=== PATIENT | male | born 1970 | race Two or more races ===

== ENCOUNTER 2017-12-01 17:39 | Inpatient (IN) | payer MEDICAID ==
[~2017-12-01] VITALS: Ht 170.2 cm; Wt 78.0 kg
[~2017-12-01 17:39] MED LIST: IBUP-24 PO; LISI-600 PO; LORA0.5T PO; NAPR220T67 PO; ONDA4TAB9 SL; PER10325T PO
[2017-12-01] MEDS ORDERED: normal saline 1000ML IV soln IV ONE (18:00)
[2017-12-01] MEDS ORDERED: ondansetron/PF 4mg/2ml inj IV ONE ×2 (19:05→23:35)
[2017-12-01] MEDS ORDERED: HYDROmorphone 1 mg/ml syringe IV ONE ×3 (19:05→23:35)
[2017-12-01 19:13] LABS: BASOPHILS % (AUTO) 0 % (0-1); EOSINOPHILS # (AUTO) 0.1 X10'3 (0-0.9); EOSINOPHILS % (AUTO) 0.6 % (0-6); HEMATOCRIT 33.4 % (42.0-52.0); LYMPHOCYTES # (AUTO) 1.6 X10'3 (1.1-4.8); LYMPHOCYTES % (AUTO) 8.5 % (21-51); MEAN CORPUSCULAR VOLUME 81.8 FL (78-98); MEAN PLATELET VOLUME 6.5 FL (7.4-10.4); MONOCYTES # (AUTO) 0.9 X10'3 (0-0.9); MONOCYTES % (AUTO) 4.7 % (2-12); NEUTROPHILS # (AUTO) 16.6 X10'3 (1.8-7.7); NEUTROPHILS % (AUTO) 86.2 % (42-75); PLATELET COUNT 626 X10'3 (140-440); RED BLOOD COUNT 4.09 X10'6 (4.70-6.10); RED CELL DISTRIBUTION WIDTH 16.5 % (11.5-14.5); WHITE BLOOD COUNT 19.3 X10'3 (4.5-11.0)
[2017-12-01 19:24] LABS: INR 1.2 INR; PARTIAL THROMBOPLASTIN TIME 29 SECONDS (22-32)
[2017-12-01 19:38] LABS: ALANINE AMINOTRANSFERASE 21 U/L (12-78); ALBUMIN 2.8 G/DL (3.4-5.0); ALBUMIN/GLOBULIN RATIO 0.5 (1.1-1.5); ALKALINE PHOSPHATASE 143 IU/L (46-116); ANION GAP 12 (8-16); ASPARTATE AMINO TRANSFERASE 23 U/L (10-37); BILIRUBIN,TOTAL 0.5 MG/DL (0.1-1.0); BLOOD UREA NITROGEN 33 MG/DL (7-18); BUN/CREATININE RATIO 24.3 (5.4-32.0); CALCIUM 9.2 MG/DL (8.5-10.1); CHLORIDE 97 MMOL/L (99-107); CREATININE 1.36 MG/DL (0.60-1.10); GLUCOSE 122 MG/DL (70-104); MAGNESIUM 1.8 MG/DL (1.5-2.4); POTASSIUM 3.7 MMOL/L (3.5-5.1); SODIUM 132 MMOL/L (135-145); TOTAL CARBON DIOXIDE 23.3 MMOL/L (24-32); eGFR 56 ML/MIN
[2017-12-01 20:15] LABS: CLARITY,URINE CLEAR (Clear); COLOR,URINE YELLOW (Yellow); GLUCOSE, URINE NEGATIVE (Neg); KETONES,URINE NEGATIVE (Neg); LEUKOCYTE ESTERASE ,URINE NEGATIVE (Neg); NITRITES, URINE NEGATIVE (Neg); OCCULT BLOOD,URINE SMALL (Neg); PH,URINE 5.5 (4.8-8.0); PROTEIN,URINE 30 mg/dl (Neg); UROBILINOGEN,URINE 0.2 E.U/dL (0.2-1.0)
[2017-12-01 20:25] LABS: UA COLLECTION TYPE CLN CATCH MIDSTREAM
[2017-12-01 20:27] LABS: WBC,URINE 0-4 /HPF (0-4)
[2017-12-01 20:28] LABS: BACTERIA,URINE FEW /HPF (Neg); RBC,URINE NONE SEEN /HPF (0-2); SQUAMOUS EPITHELIAL CELL,UR NONE SEEN /LPF (FEW)
[2017-12-01] MEDS ORDERED: normal saline 1000ml 1,000 ML IV ONE (20:35)
[2017-12-01] MEDS ORDERED: iohexol 300mg/ml 100ml inj. ONE (20:40)
[2017-12-01] MEDS ORDERED: metoclopramide 5 mg/ml inj IV ONE (20:50)
[2017-12-01] MEDS ORDERED: vancomycin/NS 1 GM ADD-VANTAGE 250 ML IV ONE (23:35)
[2017-12-01] MEDS ORDERED: piperacillin/tazo 3.375gm/50ml 50 ML IV ONE (23:35)
[2017-12-02] VITALS (18 sets, daily range): BP systolic 117–158; BP diastolic 75–117
[2017-12-02] MEDS ORDERED: PROC-8 PO (00:17)
[2017-12-02] MEDS ORDERED: MORP30TA PO (00:17)
[2017-12-02] MEDS ORDERED: ONDA8TAB12 PO (00:17)
[2017-12-02] MEDS ORDERED: acetaminophen 325mg tablet PO PRN (01:15)
[2017-12-02] MEDS ORDERED: HYDROmorphone 1 mg/ml syringe IV PRN (01:15)
[2017-12-02] MEDS ORDERED: mag hydrox/Alum hydrox/simeth 30ml oral suspension PO PRN (01:15)
[2017-12-02] MEDS ORDERED: magnesium hydroxide 30ml (MOM) UD suspension PO PRN (01:15)
[2017-12-02] MEDS ORDERED: docusate sod 100mg capsule PO PRN (01:15)
[2017-12-02] MEDS: normal saline 1000ml 1,000 ML IV SCH ×3 (02:01→21:12)
[2017-12-02] MEDS: HYDROmorphone 1 mg/ml syringe IV PRN ×5 (02:58→20:15)
[2017-12-02] MEDS: ondansetron/PF 4mg/2ml inj IV PRN (02:58)
[2017-12-02] MEDS ORDERED: lactobacillus rhamnosus 10,000 MMU CELLS/CAPSULE PO SCH (07:30)
[2017-12-02] MEDS ORDERED: LACTOBACILLUS RHAMNOSUS GG 15 billion unit sprinkle caps PO SCH (07:37)
[2017-12-02] MEDS: piperacillin/tazo 3.375gm/50ml 50 ML IV SCH ×3 (07:52→19:46)
[2017-12-02] MEDS: LORazepam 0.5 MG tablet PO SCH ×3 (07:53→19:56)
[2017-12-02] MEDS: LACTOBACILLUS RHAMNOSUS GG 15 billion unit sprinkle caps PO SCH (07:53)
[2017-12-02] MEDS: lisinopril 20mg tablet PO SCH (07:53)
[2017-12-02] MEDS ORDERED: iohexol 300mg/ml 100ml inj. ONE ×2 (10:52→11:44)
[2017-12-02] MEDS ORDERED: fentaNYL/PF 50MCG/1 ML 2ML syringe ONE ×2 (12:00→12:14)
[2017-12-02] MEDS ORDERED: midazolam 2 mg/2 ml injection ONE (12:00)
[2017-12-02] MEDS ORDERED: fentaNYL/PF 50MCG/1 ML 2ML syringe IV PRN (12:05)
[2017-12-02] MEDS ORDERED: midazolam 2 mg/2 ml injection IV PRN (12:05)
[2017-12-02] MEDS ORDERED: LIDOcaine 1%/PF (10mg/ml) 5ml vial SQ ONE (12:05)
[2017-12-02] MEDS ORDERED: diltiazem 5mg/ml 5ml inj. IV ONE (12:50)
[2017-12-02] MEDS: vancomycin/NS 1 GM ADD-VANTAGE 250 ML IV SCH (13:34)
[2017-12-03] MEDS: vancomycin/NS 1 GM ADD-VANTAGE 250 ML IV SCH ×2 (00:07→13:28)
[2017-12-03] MEDS: HYDROmorphone 1 mg/ml syringe IV PRN ×6 (00:27→22:23)
[2017-12-03] MEDS: normal saline 1000ml 1,000 ML IV SCH ×2 (02:13→15:20)
[2017-12-03] MEDS: piperacillin/tazo 3.375gm/50ml 50 ML IV SCH ×4 (02:13→19:52)
[2017-12-03 03:00] VITALS: BP 149/86
[2017-12-03] MEDS: ondansetron/PF 4mg/2ml inj IV PRN (04:56)
[2017-12-03 05:12] LABS: BASOPHILS % (AUTO) 0.1 % (0-1); EOSINOPHILS # (AUTO) 0.2 X10'3 (0-0.9); EOSINOPHILS % (AUTO) 1.4 % (0-6); HEMATOCRIT 29.7 % (42.0-52.0); HEMOGLOBIN 9.8 g/dl (14.0-17.9); LYMPHOCYTES # (AUTO) 1.7 X10'3 (1.1-4.8); LYMPHOCYTES % (AUTO) 9.4 % (21-51); MEAN CORPUSCULAR HEMOGLOBIN 26.8 PG (27.0-31.0); MEAN CORPUSCULAR VOLUME 81.3 FL (78-98); MEAN PLATELET VOLUME 6.3 FL (7.4-10.4); MONOCYTES # (AUTO) 1.1 X10'3 (0-0.9); MONOCYTES % (AUTO) 6.5 % (2-12); NEUTROPHILS # (AUTO) 14.5 X10'3 (1.8-7.7); NEUTROPHILS % (AUTO) 82.6 % (42-75); PLATELET COUNT 513 X10'3 (140-440); RED BLOOD COUNT 3.66 X10'6 (4.70-6.10); RED CELL DISTRIBUTION WIDTH 16.7 % (11.5-14.5); WHITE BLOOD COUNT 17.5 X10'3 (4.5-11.0)
[2017-12-03 05:36] LABS: ANION GAP 10 (8-16); BLOOD UREA NITROGEN 12 MG/DL (7-18); BUN/CREATININE RATIO 12.6 (5.4-32.0); CHLORIDE 104 MMOL/L (99-107); CREATININE 0.95 MG/DL (0.60-1.10); GLUCOSE 99 MG/DL (70-104); POTASSIUM 3.3 MMOL/L (3.5-5.1); SODIUM 135 MMOL/L (135-145); TOTAL CARBON DIOXIDE 20.9 MMOL/L (24-32); eGFR 85 ML/MIN
[2017-12-03 06:00] VITALS: BP 137/85
[2017-12-03] MEDS: lisinopril 20mg tablet PO SCH (08:38)
[2017-12-03] MEDS: LORazepam 0.5 MG tablet PO SCH ×3 (08:39→20:03)
[2017-12-03] MEDS ORDERED: FLU VACC QS2017-18 36MOS UP/PF 60 MCG/0.5 ML SYRINGE IMVAC ONE (10:00)
[2017-12-03] MEDS ORDERED: potassium Cl 20 mEq SR tablet PO PRN ×3 (10:15→18:10)
[2017-12-03] MEDS ORDERED: potassium Cl 40MEQ/NS 500ml 500 ML IV PRN ×4 (10:15→18:10)
[2017-12-03] MEDS ORDERED: magnesium Cl slow-release 64mg tablet PO PRN (10:15)
[2017-12-03] MEDS: potassium Cl 20 mEq SR tablet PO PRN ×3 (10:35→19:52)
[2017-12-03 11:00] VITALS: BP 140/80
[2017-12-03] MEDS ORDERED: VANCOMYCIN LEVEL IV ONE (12:30)
[2017-12-03 15:00] VITALS: BP 123/87
[2017-12-03] MEDS: K and/or MAG REPLACEMENT MC SCH (18:10)
[2017-12-03 19:00] VITALS: BP 151/82
[2017-12-03] MEDS: acetaminophen 325mg tablet PO PRN (19:56)
[2017-12-03 23:00] VITALS: BP 132/87
[2017-12-04] MEDS: HYDROmorphone 1 mg/ml syringe IV PRN ×5 (02:26→13:13)
[2017-12-04 03:00] VITALS: BP 156/85
[2017-12-04] MEDS: piperacillin/tazo 3.375gm/50ml 50 ML IV SCH ×4 (03:03→20:01)
[2017-12-04] MEDS: normal saline 1000ml 1,000 ML IV SCH ×3 (03:12→23:12)
[2017-12-04] MEDS: acetaminophen 325mg tablet PO PRN ×2 (04:52→18:55)
[2017-12-04] MEDS ORDERED: HYDROmorphone inj. 0.5 MG/0.5 ML DISP.SYRIN IV PRN (05:25)
[2017-12-04 05:36] LABS: ALBUMIN 1.9 G/DL (3.4-5.0); ANION GAP 8 (8-16); BASOPHILS # (AUTO) 0.1 X10'3 (0-0.2); BASOPHILS % (AUTO) 0.3 % (0-1); BLOOD UREA NITROGEN 9 MG/DL (7-18); BUN/CREATININE RATIO 10.8 (5.4-32.0); CALCIUM 8.2 MG/DL (8.5-10.1); CHLORIDE 104 MMOL/L (99-107); CREATININE 0.83 MG/DL (0.60-1.10); EOSINOPHILS # (AUTO) 0.3 X10'3 (0-0.9); EOSINOPHILS % (AUTO) 1.7 % (0-6); GLUCOSE 97 MG/DL (70-104); HEMATOCRIT 28.5 % (42.0-52.0); HEMOGLOBIN 9.3 g/dl (14.0-17.9); LYMPHOCYTES # (AUTO) 1.5 X10'3 (1.1-4.8); LYMPHOCYTES % (AUTO) 8.7 % (21-51); MEAN CORPUSCULAR HEMOGLOBIN 26.4 PG (27.0-31.0); MEAN CORPUSCULAR HGB CONC 32.4 % (33.0-36.5); MEAN CORPUSCULAR VOLUME 81.6 FL (78-98); MEAN PLATELET VOLUME 6.5 FL (7.4-10.4); MONOCYTES # (AUTO) 1.1 X10'3 (0-0.9); MONOCYTES % (AUTO) 6.2 % (2-12); NEUTROPHILS # (AUTO) 14.1 X10'3 (1.8-7.7); NEUTROPHILS % (AUTO) 83.1 % (42-75); PLATELET COUNT 466 X10'3 (140-440); POTASSIUM 3.6 MMOL/L (3.5-5.1); RED CELL DISTRIBUTION WIDTH 16.1 % (11.5-14.5); SODIUM 134 MMOL/L (135-145); TOTAL CARBON DIOXIDE 22.3 MMOL/L (24-32); WHITE BLOOD COUNT 16.9 X10'3 (4.5-11.0); eGFR > 90 ML/MIN
[2017-12-04 06:00] VITALS: BP 144/88
[2017-12-04] MEDS: K and/or MAG REPLACEMENT MC SCH (08:00)
[2017-12-04] MEDS: LACTOBACILLUS RHAMNOSUS GG 15 billion unit sprinkle caps PO SCH (08:21)
[2017-12-04] MEDS: LORazepam 0.5 MG tablet PO SCH ×3 (08:22→20:01)
[2017-12-04] MEDS: lisinopril 20mg tablet PO SCH (08:22)
[2017-12-04] MEDS: ondansetron/PF 4mg/2ml inj IV PRN (08:27)
[2017-12-04 11:00] VITALS: BP 130/90
[2017-12-04] MEDS ORDERED: naloxone 0.4 mg/ml inj IV PRN (14:00)
[2017-12-04] MEDS ORDERED: CADD PCA waste documentation MC PRN (14:00)
[2017-12-04 15:00] VITALS: BP 134/88
[2017-12-04] MEDS: HYDROmorphone/NS 1 mg/ml CADD 50 ML IV SCH ×5 (15:04→22:56)
[2017-12-04 19:00] VITALS: BP 155/88
[2017-12-04] MEDS ORDERED: calcium carbonate 500mg chew tablet PO PRN (20:30)
[2017-12-04] MEDS ORDERED: HYDROcodone/acetaminophen 10/325mg tab PO PRN (20:30)
[2017-12-04] MEDS: pantoprazole 40mg Tablet.DR PO SCH (20:45)
[2017-12-04] MEDS: HYDROcodone/acetaminophen 5mg/325mg tablet PO PRN (20:45)
[2017-12-04 23:00] VITALS: BP 123/84
[2017-12-05] MEDS: HYDROmorphone/NS 1 mg/ml CADD 50 ML IV SCH ×4 (01:00→07:00)
[2017-12-05] MEDS: HYDROcodone/acetaminophen 5mg/325mg tablet PO PRN (02:39)
[2017-12-05] MEDS: piperacillin/tazo 3.375gm/50ml 50 ML IV SCH ×4 (02:39→20:18)
[2017-12-05 03:00] VITALS: BP 147/93
[2017-12-05 06:00] VITALS: BP 136/91
[2017-12-05 06:03] LABS: BASOPHILS # (AUTO) 0.1 X10'3 (0-0.2); BASOPHILS % (AUTO) 0.3 % (0-1); EOSINOPHILS # (AUTO) 0.4 X10'3 (0-0.9); EOSINOPHILS % (AUTO) 2.7 % (0-6); HEMATOCRIT 28.1 % (42.0-52.0); HEMOGLOBIN 9.1 g/dl (14.0-17.9); LYMPHOCYTES # (AUTO) 1.8 X10'3 (1.1-4.8); LYMPHOCYTES % (AUTO) 11.2 % (21-51); MEAN CORPUSCULAR HEMOGLOBIN 26.5 PG (27.0-31.0); MEAN CORPUSCULAR HGB CONC 32.4 % (33.0-36.5); MEAN CORPUSCULAR VOLUME 81.6 FL (78-98); MEAN PLATELET VOLUME 6.1 FL (7.4-10.4); MONOCYTES % (AUTO) 6.6 % (2-12); NEUTROPHILS # (AUTO) 12.6 X10'3 (1.8-7.7); NEUTROPHILS % (AUTO) 79.2 % (42-75); PLATELET COUNT 483 X10'3 (140-440); RED BLOOD COUNT 3.44 X10'6 (4.70-6.10); RED CELL DISTRIBUTION WIDTH 16.6 % (11.5-14.5); WHITE BLOOD COUNT 15.9 X10'3 (4.5-11.0)
[2017-12-05 06:26] LABS: ALBUMIN 1.7 G/DL (3.4-5.0); ANION GAP 8 (8-16); BLOOD UREA NITROGEN 7 MG/DL (7-18); CALCIUM 8.1 MG/DL (8.5-10.1); CHLORIDE 103 MMOL/L (99-107); CREATININE 0.88 MG/DL (0.60-1.10); GLUCOSE 95 MG/DL (70-104); POTASSIUM 3.2 MMOL/L (3.5-5.1); SODIUM 134 MMOL/L (135-145); TOTAL CARBON DIOXIDE 23.4 MMOL/L (24-32); eGFR > 90 ML/MIN
[2017-12-05] MEDS: pantoprazole 40mg Tablet.DR PO SCH (08:21)
[2017-12-05] MEDS: LACTOBACILLUS RHAMNOSUS GG 15 billion unit sprinkle caps PO SCH (08:21)
[2017-12-05] MEDS: LORazepam 0.5 MG tablet PO SCH ×3 (08:22→20:18)
[2017-12-05] MEDS: lisinopril 20mg tablet PO SCH (08:22)
[2017-12-05] MEDS: potassium Cl 20 mEq SR tablet PO PRN ×3 (08:26→18:57)
[2017-12-05] MEDS: K and/or MAG REPLACEMENT MC SCH (08:28)
[2017-12-05] MEDS: normal saline 1000ml 1,000 ML IV SCH ×2 (09:12→22:15)
[2017-12-05] MEDS: HYDROmorphone 1 mg/ml syringe IV PRN ×6 (10:24→22:15)
[2017-12-05] MEDS ORDERED: oxyCODONE/APAP 5-325mg tablet PO PRN (10:50)
[2017-12-05] MEDS ORDERED: HYDROmorphone inj. 0.5 MG/0.5 ML DISP.SYRIN IV PRN (10:50)
[2017-12-05 11:00] VITALS: BP 123/84
[2017-12-05] MEDS ORDERED: VANCOMYCIN LEVEL IV ONE (12:30)
[2017-12-05] MEDS: oxyCODONE/APAP 10/325mg tablet PO PRN ×2 (13:40→18:57)
[2017-12-05 15:00] VITALS: BP 135/97
[2017-12-05 18:00] VITALS: BP 119/85
[2017-12-05 23:00] VITALS: BP 132/94
[2017-12-06] MEDS: oxyCODONE/APAP 10/325mg tablet PO PRN ×6 (00:43→22:13)
[2017-12-06] MEDS: piperacillin/tazo 3.375gm/50ml 50 ML IV SCH ×4 (03:02→19:05)
[2017-12-06] MEDS: HYDROmorphone 1 mg/ml syringe IV PRN ×6 (03:03→21:19)
[2017-12-06 03:41] VITALS: BP 121/89
[2017-12-06] MEDS: normal saline 1000ml 1,000 ML IV SCH ×2 (05:12→15:12)
[2017-12-06 05:35] LABS: BASOPHILS # (AUTO) 0.1 X10'3 (0-0.2); BASOPHILS % (AUTO) 0.3 % (0-1); EOSINOPHILS # (AUTO) 0.5 X10'3 (0-0.9); EOSINOPHILS % (AUTO) 3.2 % (0-6); HEMATOCRIT 26.8 % (42.0-52.0); HEMOGLOBIN 8.6 g/dl (14.0-17.9); LYMPHOCYTES # (AUTO) 1.5 X10'3 (1.1-4.8); LYMPHOCYTES % (AUTO) 9.3 % (21-51); MEAN CORPUSCULAR HEMOGLOBIN 26.7 PG (27.0-31.0); MEAN CORPUSCULAR HGB CONC 32.3 % (33.0-36.5); MEAN CORPUSCULAR VOLUME 82.6 FL (78-98); MEAN PLATELET VOLUME 6.4 FL (7.4-10.4); MONOCYTES # (AUTO) 1.1 X10'3 (0-0.9); MONOCYTES % (AUTO) 6.4 % (2-12); NEUTROPHILS # (AUTO) 13.4 X10'3 (1.8-7.7); NEUTROPHILS % (AUTO) 80.8 % (42-75); PLATELET COUNT 470 X10'3 (140-440); RED BLOOD COUNT 3.24 X10'6 (4.70-6.10); RED CELL DISTRIBUTION WIDTH 16.4 % (11.5-14.5); WHITE BLOOD COUNT 16.5 X10'3 (4.5-11.0)
[2017-12-06 05:49] LABS: ALBUMIN 1.7 G/DL (3.4-5.0); ANION GAP 9 (8-16); BLOOD UREA NITROGEN 6 MG/DL (7-18); BUN/CREATININE RATIO 6.6 (5.4-32.0); CALCIUM 8.1 MG/DL (8.5-10.1); CHLORIDE 100 MMOL/L (99-107); CREATININE 0.91 MG/DL (0.60-1.10); GLUCOSE 95 MG/DL (70-104); POTASSIUM 3.3 MMOL/L (3.5-5.1); SODIUM 133 MMOL/L (135-145); TOTAL CARBON DIOXIDE 24.1 MMOL/L (24-32); eGFR 89 ML/MIN
[2017-12-06 06:30] VITALS: BP 136/93
[2017-12-06] MEDS: LACTOBACILLUS RHAMNOSUS GG 15 billion unit sprinkle caps PO SCH (07:16)
[2017-12-06] MEDS: LORazepam 0.5 MG tablet PO SCH ×3 (07:17→21:16)
[2017-12-06] MEDS: pantoprazole 40mg Tablet.DR PO SCH (07:17)
[2017-12-06] MEDS: potassium Cl 20 mEq SR tablet PO PRN ×2 (07:17→21:16)
[2017-12-06] MEDS: lisinopril 20mg tablet PO SCH (07:29)
[2017-12-06] MEDS: K and/or MAG REPLACEMENT MC SCH (07:30)
[2017-12-06 11:00] VITALS: BP 152/84
[2017-12-06 15:00] VITALS: BP 144/93
[2017-12-06 19:00] VITALS: BP 130/76
[2017-12-06] MEDS ORDERED: potassium Cl 20 mEq SR tablet PO PRN (19:20)
[2017-12-06 23:00] VITALS: BP 157/96
[2017-12-07] MEDS: HYDROmorphone 1 mg/ml syringe IV PRN ×11 (00:25→23:14)
[2017-12-07] MEDS: normal saline 1000ml 1,000 ML IV SCH ×3 (01:12→21:12)
[2017-12-07] MEDS: potassium Cl 20 mEq SR tablet PO PRN (02:28)
[2017-12-07] MEDS: oxyCODONE/APAP 10/325mg tablet PO PRN ×5 (02:28→20:07)
[2017-12-07] MEDS: piperacillin/tazo 3.375gm/50ml 50 ML IV SCH ×4 (02:29→20:06)
[2017-12-07 03:00] VITALS: BP 130/91
[2017-12-07 05:05] LABS: BASOPHILS # (AUTO) 0.1 X10'3 (0-0.2); BASOPHILS % (AUTO) 0.3 % (0-1); EOSINOPHILS # (AUTO) 0.7 X10'3 (0-0.9); EOSINOPHILS % (AUTO) 3.7 % (0-6); HEMATOCRIT 26.2 % (42.0-52.0); HEMOGLOBIN 8.5 g/dl (14.0-17.9); LYMPHOCYTES % (AUTO) 10.9 % (21-51); MEAN CORPUSCULAR HEMOGLOBIN 26.4 PG (27.0-31.0); MEAN CORPUSCULAR HGB CONC 32.6 % (33.0-36.5); MEAN PLATELET VOLUME 6.3 FL (7.4-10.4); MONOCYTES # (AUTO) 1.3 X10'3 (0-0.9); MONOCYTES % (AUTO) 7.2 % (2-12); NEUTROPHILS # (AUTO) 14.6 X10'3 (1.8-7.7); NEUTROPHILS % (AUTO) 77.9 % (42-75); PLATELET COUNT 487 X10'3 (140-440); RED BLOOD COUNT 3.23 X10'6 (4.70-6.10); RED CELL DISTRIBUTION WIDTH 16.3 % (11.5-14.5); WHITE BLOOD COUNT 18.7 X10'3 (4.5-11.0)
[2017-12-07 05:23] LABS: ALBUMIN 1.7 G/DL (3.4-5.0); ANION GAP 6 (8-16); BLOOD UREA NITROGEN 7 MG/DL (7-18); BUN/CREATININE RATIO 7.7 (5.4-32.0); CALCIUM 8.2 MG/DL (8.5-10.1); CHLORIDE 99 MMOL/L (99-107); CREATININE 0.91 MG/DL (0.60-1.10); GLUCOSE 110 MG/DL (70-104); MAGNESIUM 1.5 MG/DL (1.5-2.4); POTASSIUM 3.8 MMOL/L (3.5-5.1); SODIUM 131 MMOL/L (135-145); TOTAL CARBON DIOXIDE 25.8 MMOL/L (24-32); eGFR 89 ML/MIN
[2017-12-07] MEDS: LORazepam 0.5 MG tablet PO SCH ×3 (07:14→20:06)
[2017-12-07] MEDS: pantoprazole 40mg Tablet.DR PO SCH (07:15)
[2017-12-07] MEDS: LACTOBACILLUS RHAMNOSUS GG 15 billion unit sprinkle caps PO SCH ×2 (07:16→07:30)
[2017-12-07] MEDS: lisinopril 20mg tablet PO SCH (07:16)
[2017-12-07 07:19] VITALS: BP 128/92
[2017-12-07] MEDS: K and/or MAG REPLACEMENT MC SCH (08:00)
[2017-12-07 11:57] VITALS: BP 135/85
[2017-12-07] MEDS ORDERED: normal saline 1000ml 1,000 ML IVB ONE (12:11)
[2017-12-07 16:43] VITALS: BP 127/88
[2017-12-07 19:00] VITALS: BP 138/97
[2017-12-07 23:00] VITALS: BP 126/83
[2017-12-08] VITALS (7 sets, daily range): BP systolic 131–166; BP diastolic 87–110
[2017-12-08] MEDS: oxyCODONE/APAP 10/325mg tablet PO PRN ×5 (00:23→20:30)
[2017-12-08] MEDS: piperacillin/tazo 3.375gm/50ml 50 ML IV SCH ×2 (01:16→08:34)
[2017-12-08] MEDS: HYDROmorphone 1 mg/ml syringe IV PRN ×5 (02:28→21:51)
[2017-12-08 05:35] LABS: BASOPHILS # (AUTO) 0.1 X10'3 (0-0.2); BASOPHILS % (AUTO) 0.3 % (0-1); EOSINOPHILS % (AUTO) 4.6 % (0-6); HEMATOCRIT 30.4 % (42.0-52.0); HEMOGLOBIN 9.9 g/dl (14.0-17.9); LYMPHOCYTES # (AUTO) 3.3 X10'3 (1.1-4.8); LYMPHOCYTES % (AUTO) 16.1 % (21-51); MEAN CORPUSCULAR HEMOGLOBIN 26.6 PG (27.0-31.0); MEAN CORPUSCULAR HGB CONC 32.6 % (33.0-36.5); MEAN CORPUSCULAR VOLUME 81.7 FL (78-98); MEAN PLATELET VOLUME 6.7 FL (7.4-10.4); MONOCYTES # (AUTO) 1.4 X10'3 (0-0.9); MONOCYTES % (AUTO) 6.7 % (2-12); NEUTROPHILS % (AUTO) 72.3 % (42-75); PLATELET COUNT 588 X10'3 (140-440); RED BLOOD COUNT 3.72 X10'6 (4.70-6.10); RED CELL DISTRIBUTION WIDTH 16.1 % (11.5-14.5); WHITE BLOOD COUNT 20.7 X10'3 (4.5-11.0)
[2017-12-08 05:59] LABS: ALBUMIN 2.2 G/DL (3.4-5.0); ANION GAP 8 (8-16); BLOOD UREA NITROGEN 7 MG/DL (7-18); CALCIUM 8.8 MG/DL (8.5-10.1); CHLORIDE 98 MMOL/L (99-107); GLUCOSE 96 MG/DL (70-104); POTASSIUM 3.4 MMOL/L (3.5-5.1); SODIUM 133 MMOL/L (135-145); eGFR 80 ML/MIN
[2017-12-08] MEDS: normal saline 1000ml 1,000 ML IV SCH ×3 (07:18→20:34)
[2017-12-08] MEDS ORDERED: CefTRIAXone 2gm/NS 100ml IVPB 100 ML IV ONE (08:25)
[2017-12-08] MEDS: lisinopril 20mg tablet PO SCH (08:46)
[2017-12-08] MEDS: LACTOBACILLUS RHAMNOSUS GG 15 billion unit sprinkle caps PO SCH (08:46)
[2017-12-08] MEDS: potassium Cl 20 mEq SR tablet PO PRN ×3 (08:47→20:29)
[2017-12-08] MEDS: LORazepam 0.5 MG tablet PO SCH ×3 (08:47→20:29)
[2017-12-08] MEDS: pantoprazole 40mg Tablet.DR PO SCH (08:54)
[2017-12-08] MEDS: K and/or MAG REPLACEMENT MC SCH (09:01)
[2017-12-08] MEDS: oxyCODONE SR 10mg (sust. release) tab PO SCH ×2 (12:19→19:38)
[2017-12-08] MEDS ORDERED: oxyCODONE SR 10mg (sust. release) tab PO SCH (20:00)
[2017-12-08] MEDS ORDERED: oxyCODONE SR 10mg (sust. release) tab PO ONE (23:30)
[2017-12-09] MEDS: oxyCODONE/APAP 10/325mg tablet PO PRN ×3 (00:37→10:03)
[2017-12-09 03:00] VITALS: BP 151/104
[2017-12-09] MEDS: HYDROmorphone 1 mg/ml syringe IV PRN ×6 (03:00→22:49)
[2017-12-09] MEDS: normal saline 1000ml 1,000 ML IV SCH ×2 (05:41→16:10)
[2017-12-09 06:09] LABS: BASOPHILS # (AUTO) 0.1 X10'3 (0-0.2); BASOPHILS % (AUTO) 0.3 % (0-1); EOSINOPHILS # (AUTO) 0.7 X10'3 (0-0.9); EOSINOPHILS % (AUTO) 3.8 % (0-6); HEMOGLOBIN 8.8 g/dl (14.0-17.9); LYMPHOCYTES # (AUTO) 2.6 X10'3 (1.1-4.8); LYMPHOCYTES % (AUTO) 12.9 % (21-51); MEAN CORPUSCULAR HEMOGLOBIN 26.4 PG (27.0-31.0); MEAN CORPUSCULAR HGB CONC 32.4 % (33.0-36.5); MEAN CORPUSCULAR VOLUME 81.5 FL (78-98); MEAN PLATELET VOLUME 6.5 FL (7.4-10.4); MONOCYTES # (AUTO) 1.3 X10'3 (0-0.9); MONOCYTES % (AUTO) 6.7 % (2-12); NEUTROPHILS # (AUTO) 15.1 X10'3 (1.8-7.7); NEUTROPHILS % (AUTO) 76.3 % (42-75); PLATELET COUNT 568 X10'3 (140-440); RED BLOOD COUNT 3.31 X10'6 (4.70-6.10); WHITE BLOOD COUNT 19.8 X10'3 (4.5-11.0)
[2017-12-09 06:30] VITALS: BP 147/100
[2017-12-09 06:36] LABS: ALANINE AMINOTRANSFERASE 18 U/L (12-78); ALBUMIN 1.9 G/DL (3.4-5.0); ALBUMIN/GLOBULIN RATIO 0.3 (1.1-1.5); ALKALINE PHOSPHATASE 229 IU/L (46-116); ANION GAP 5 (8-16); ASPARTATE AMINO TRANSFERASE 39 U/L (10-37); BILIRUBIN,TOTAL 0.5 MG/DL (0.1-1.0); BLOOD UREA NITROGEN 4 MG/DL (7-18); BUN/CREATININE RATIO 4.4 (5.4-32.0); CALCIUM 8.6 MG/DL (8.5-10.1); CHLORIDE 100 MMOL/L (99-107); GLUCOSE 89 MG/DL (70-104); MAGNESIUM 1.7 MG/DL (1.5-2.4); PHOSPHORUS 2.5 MG/DL (2.3-4.5); SODIUM 135 MMOL/L (135-145); TOTAL CARBON DIOXIDE 29.8 MMOL/L (24-32); TOTAL PROTEIN 7.5 G/DL (6.4-8.2); eGFR 90 ML/MIN
[2017-12-09] MEDS: LORazepam 0.5 MG tablet PO SCH ×3 (07:46→20:49)
[2017-12-09] MEDS: pantoprazole 40mg Tablet.DR PO SCH (07:46)
[2017-12-09] MEDS: LACTOBACILLUS RHAMNOSUS GG 15 billion unit sprinkle caps PO SCH (07:47)
[2017-12-09] MEDS: lisinopril 20mg tablet PO SCH (07:47)
[2017-12-09] MEDS: oxyCODONE SR 10mg (sust. release) tab PO SCH ×3 (07:47→20:50)
[2017-12-09] MEDS: K and/or MAG REPLACEMENT MC SCH (07:49)
[2017-12-09] MEDS ORDERED: CefTRIAXone/dextrose 2GM bag 50 ML IV ONE (08:00)
[2017-12-09] MEDS ORDERED: cefazolin/dext.iso 2gm/50ml 50 ML IV ONE (08:00)
[2017-12-09] MEDS ORDERED: CefTRIAXone 2gm/NS 100ml IVPB 100 ML IV SCH (08:00)
[2017-12-09 11:00] VITALS: BP 139/103
[2017-12-09] MEDS ORDERED: HYDROmorphone inj. 0.5 MG/0.5 ML DISP.SYRIN IV PRN (12:05)
[2017-12-09 13:00] VITALS: BP 149/92
[2017-12-09 20:00] VITALS: BP 160/96
[2017-12-09] MEDS: metroNIDAZOLE 500mg tablet PO SCH (20:49)
[2017-12-09] MEDS: ciprofloxacin 250mg tablet PO SCH (22:46)
[2017-12-10] VITALS: BP 149/88
[2017-12-10] MEDS: normal saline 1000ml 1,000 ML IV SCH ×3 (03:30→23:28)
[2017-12-10] MEDS ORDERED: HYDROmorphone inj. 0.5 MG/0.5 ML DISP.SYRIN ONE (05:37)
[2017-12-10 07:00] VITALS: BP 144/90
[2017-12-10] MEDS: LACTOBACILLUS RHAMNOSUS GG 15 billion unit sprinkle caps PO SCH (08:00)
[2017-12-10] MEDS ORDERED: CefTRIAXone 2gm/NS 100ml IVPB 100 ML IV SCH (08:00)
[2017-12-10] MEDS: K and/or MAG REPLACEMENT MC SCH (08:00)
[2017-12-10] MEDS: LORazepam 0.5 MG tablet PO SCH ×3 (08:00→21:32)
[2017-12-10] MEDS: lisinopril 20mg tablet PO SCH (08:01)
[2017-12-10] MEDS: oxyCODONE SR 10mg (sust. release) tab PO SCH ×2 (08:02→13:16)
[2017-12-10] MEDS: metroNIDAZOLE 500mg tablet PO SCH ×2 (08:02→20:21)
[2017-12-10] MEDS: pantoprazole 40mg Tablet.DR PO SCH (08:02)
[2017-12-10 08:23] LABS: BASOPHILS # (AUTO) 0.1 X10'3 (0-0.2); BASOPHILS % (AUTO) 0.4 % (0-1); EOSINOPHILS # (AUTO) 0.4 X10'3 (0-0.9); EOSINOPHILS % (AUTO) 2.6 % (0-6); HEMOGLOBIN 8.8 g/dl (14.0-17.9); LYMPHOCYTES # (AUTO) 1.7 X10'3 (1.1-4.8); LYMPHOCYTES % (AUTO) 10.4 % (21-51); MEAN CORPUSCULAR HEMOGLOBIN 27.6 PG (27.0-31.0); MEAN CORPUSCULAR HGB CONC 35.1 % (33.0-36.5); MEAN CORPUSCULAR VOLUME 78.7 FL (78-98); MEAN PLATELET VOLUME 6.5 FL (7.4-10.4); MONOCYTES # (AUTO) 1.3 X10'3 (0-0.9); MONOCYTES % (AUTO) 7.6 % (2-12); NEUTROPHILS # (AUTO) 13.3 X10'3 (1.8-7.7); PLATELET COUNT 621 X10'3 (140-440); RED BLOOD COUNT 3.18 X10'6 (4.70-6.10); RED CELL DISTRIBUTION WIDTH 15.3 % (11.5-14.5); WHITE BLOOD COUNT 16.8 X10'3 (4.5-11.0)
[2017-12-10 08:37] LABS: ALANINE AMINOTRANSFERASE 18 U/L (12-78); ALBUMIN/GLOBULIN RATIO 0.3 (1.1-1.5); ALKALINE PHOSPHATASE 233 IU/L (46-116); ANION GAP 7 (8-16); ASPARTATE AMINO TRANSFERASE 31 U/L (10-37); BILIRUBIN,TOTAL 0.4 MG/DL (0.1-1.0); BLOOD UREA NITROGEN 5 MG/DL (7-18); CALCIUM 8.6 MG/DL (8.5-10.1); CHLORIDE 100 MMOL/L (99-107); GLUCOSE 98 MG/DL (70-104); SODIUM 137 MMOL/L (135-145); TOTAL PROTEIN 7.9 G/DL (6.4-8.2); eGFR 80 ML/MIN
[2017-12-10] MEDS: ciprofloxacin 250mg tablet PO SCH ×2 (09:40→21:34)
[2017-12-10] MEDS: HYDROmorphone 1 mg/ml syringe IV PRN ×3 (09:41→21:41)
[2017-12-10 11:05] VITALS: BP 150/93
[2017-12-10] MEDS ORDERED: HYDROmorphone 1 mg/ml syringe IV ONE (13:00)
[2017-12-10 18:00] VITALS: BP 139/93
[2017-12-10] MEDS: methadone 10mg tablet PO SCH (20:21)
[2017-12-11] VITALS: BP 162/89
[2017-12-11] MEDS: HYDROmorphone 1 mg/ml syringe IV PRN ×2 (01:46→05:54)
[2017-12-11 05:23] LABS: BASOPHILS % (AUTO) 0.3 % (0-1); EOSINOPHILS # (AUTO) 0.6 X10'3 (0-0.9); EOSINOPHILS % (AUTO) 4.6 % (0-6); HEMATOCRIT 24.6 % (42.0-52.0); LYMPHOCYTES # (AUTO) 1.7 X10'3 (1.1-4.8); LYMPHOCYTES % (AUTO) 12.4 % (21-51); MEAN CORPUSCULAR HEMOGLOBIN 26.3 PG (27.0-31.0); MEAN CORPUSCULAR HGB CONC 32.6 % (33.0-36.5); MEAN CORPUSCULAR VOLUME 80.7 FL (78-98); MEAN PLATELET VOLUME 6.2 FL (7.4-10.4); MONOCYTES % (AUTO) 7.7 % (2-12); NEUTROPHILS # (AUTO) 10.1 X10'3 (1.8-7.7); PLATELET COUNT 599 X10'3 (140-440); RED BLOOD COUNT 3.05 X10'6 (4.70-6.10); RED CELL DISTRIBUTION WIDTH 16.6 % (11.5-14.5); WHITE BLOOD COUNT 13.5 X10'3 (4.5-11.0)
[2017-12-11 06:18] LABS: ALANINE AMINOTRANSFERASE 20 U/L (12-78); ALBUMIN 1.8 G/DL (3.4-5.0); ALBUMIN/GLOBULIN RATIO 0.3 (1.1-1.5); ALKALINE PHOSPHATASE 231 IU/L (46-116); ANION GAP 8 (8-16); ASPARTATE AMINO TRANSFERASE 32 U/L (10-37); BILIRUBIN,TOTAL 0.4 MG/DL (0.1-1.0); BLOOD UREA NITROGEN 7 MG/DL (7-18); BUN/CREATININE RATIO 7.8 (5.4-32.0); CALCIUM 8.5 MG/DL (8.5-10.1); CHLORIDE 100 MMOL/L (99-107); GLUCOSE 93 MG/DL (70-104); POTASSIUM 3.9 MMOL/L (3.5-5.1); SODIUM 136 MMOL/L (135-145); TOTAL CARBON DIOXIDE 27.7 MMOL/L (24-32); TOTAL PROTEIN 7.3 G/DL (6.4-8.2); eGFR 90 ML/MIN
[2017-12-11 07:00] VITALS: BP 151/86
[2017-12-11] MEDS: K and/or MAG REPLACEMENT MC SCH (08:00)
[2017-12-11] MEDS: LORazepam 0.5 MG tablet PO SCH ×3 (08:25→20:32)
[2017-12-11] MEDS: methadone 10mg tablet PO SCH ×2 (08:25→20:31)
[2017-12-11] MEDS: LACTOBACILLUS RHAMNOSUS GG 15 billion unit sprinkle caps PO SCH (08:25)
[2017-12-11] MEDS: metroNIDAZOLE 500mg tablet PO SCH ×2 (08:25→20:31)
[2017-12-11] MEDS: pantoprazole 40mg Tablet.DR PO SCH (08:25)
[2017-12-11] MEDS: lisinopril 20mg tablet PO SCH (08:26)
[2017-12-11] MEDS ORDERED: HYDROmorphone inj. 0.5 MG/0.5 ML DISP.SYRIN ONE ×5 (09:40→22:29)
[2017-12-11] MEDS: normal saline 1000ml 1,000 ML IV SCH (09:43)
[2017-12-11] MEDS: ciprofloxacin 250mg tablet PO SCH ×2 (09:53→22:32)
[2017-12-11] MEDS ORDERED: HYDROmorphone 1 mg/ml syringe IV PRN (10:40)
[2017-12-11 11:00] VITALS: BP 123/85
[2017-12-11] MEDS ORDERED: PANT40TA4 PO (12:02)
[2017-12-11 18:00] VITALS: BP 139/90
[2017-12-12] VITALS: BP 156/94
[2017-12-12] MEDS ORDERED: HYDROmorphone inj. 0.5 MG/0.5 ML DISP.SYRIN ONE ×3 (02:32→16:09)
[2017-12-12] MEDS: normal saline 1000ml 1,000 ML IV SCH ×2 (02:41→13:01)
[2017-12-12 07:00] VITALS: BP 136/84
[2017-12-12] MEDS: pantoprazole 40mg Tablet.DR PO SCH (07:30)
[2017-12-12] MEDS: methadone 10mg tablet PO SCH ×2 (08:00→19:57)
[2017-12-12] MEDS: LORazepam 0.5 MG tablet PO SCH ×3 (08:00→20:15)
[2017-12-12] MEDS: K and/or MAG REPLACEMENT MC SCH (08:00)
[2017-12-12] MEDS: metroNIDAZOLE 500mg tablet PO SCH ×2 (09:19→20:15)
[2017-12-12] MEDS: LACTOBACILLUS RHAMNOSUS GG 15 billion unit sprinkle caps PO SCH (09:19)
[2017-12-12] MEDS: lisinopril 20mg tablet PO SCH (09:20)
[2017-12-12] MEDS: ciprofloxacin 250mg tablet PO SCH ×2 (09:40→21:02)
[2017-12-12 11:50] VITALS: BP 131/89
[2017-12-12] MEDS ORDERED: potassium Cl 20 mEq SR tablet PO STA (12:08)
[2017-12-12] MEDS: Potassium Cl inj 10 MEQ in normal saline 1000ml 1,000 ML IV SCH (17:24)
[2017-12-12 19:30] VITALS: BP 146/92
[2017-12-12] MEDS: diatr meglu/diatrizoate 30ml oral sol.-(3 dose) bottle PO SCH (21:01)
[2017-12-12] MEDS: HYDROmorphone inj. 0.5 MG/0.5 ML DISP.SYRIN IV PRN (21:04)
[2017-12-12 23:00] VITALS: BP 145/96
[2017-12-13] VITALS (9 sets, daily range): BP systolic 99–141; BP diastolic 65–88
[2017-12-13] MEDS: HYDROmorphone inj. 0.5 MG/0.5 ML DISP.SYRIN IV PRN ×6 (01:15→23:14)
[2017-12-13 05:31] LABS: BASOPHILS # (AUTO) 0.1 X10'3 (0-0.2); BASOPHILS % (AUTO) 0.7 % (0-1); EOSINOPHILS # (AUTO) 0.6 X10'3 (0-0.9); EOSINOPHILS % (AUTO) 5.3 % (0-6); HEMOGLOBIN 7.1 g/dl (14.0-17.9); LYMPHOCYTES # (AUTO) 1.8 X10'3 (1.1-4.8); LYMPHOCYTES % (AUTO) 15.2 % (21-51); MEAN CORPUSCULAR HEMOGLOBIN 26.5 PG (27.0-31.0); MEAN CORPUSCULAR VOLUME 80.5 FL (78-98); MEAN PLATELET VOLUME 6.4 FL (7.4-10.4); MONOCYTES # (AUTO) 0.9 X10'3 (0-0.9); MONOCYTES % (AUTO) 8.1 % (2-12); NEUTROPHILS # (AUTO) 8.2 X10'3 (1.8-7.7); NEUTROPHILS % (AUTO) 70.7 % (42-75); PLATELET COUNT 614 X10'3 (140-440); RED BLOOD COUNT 2.68 X10'6 (4.70-6.10); RED CELL DISTRIBUTION WIDTH 16.2 % (11.5-14.5); WHITE BLOOD COUNT 11.6 X10'3 (4.5-11.0)
[2017-12-13 05:38] LABS: HEMATOCRIT 21.6 % (42.0-52.0)
[2017-12-13 05:45] LABS: ALANINE AMINOTRANSFERASE 16 U/L (12-78); ALBUMIN 1.8 G/DL (3.4-5.0); ALBUMIN/GLOBULIN RATIO 0.3 (1.1-1.5); ALKALINE PHOSPHATASE 236 IU/L (46-116); ANION GAP 7 (8-16); ASPARTATE AMINO TRANSFERASE 30 U/L (10-37); BILIRUBIN,TOTAL 0.3 MG/DL (0.1-1.0); BLOOD UREA NITROGEN 7 MG/DL (7-18); CALCIUM 8.3 MG/DL (8.5-10.1); CHLORIDE 100 MMOL/L (99-107); GLUCOSE 85 MG/DL (70-104); POTASSIUM 3.9 MMOL/L (3.5-5.1); SODIUM 134 MMOL/L (135-145); TOTAL CARBON DIOXIDE 27.1 MMOL/L (24-32); TOTAL PROTEIN 7.4 G/DL (6.4-8.2); eGFR 80 ML/MIN
[2017-12-13] MEDS: LACTOBACILLUS RHAMNOSUS GG 15 billion unit sprinkle caps PO SCH (07:41)
[2017-12-13] MEDS: metroNIDAZOLE 500mg tablet PO SCH ×2 (07:41→20:55)
[2017-12-13] MEDS: lisinopril 20mg tablet PO SCH (07:42)
[2017-12-13] MEDS: LORazepam 0.5 MG tablet PO SCH ×3 (07:43→20:56)
[2017-12-13] MEDS: methadone 10mg tablet PO SCH ×2 (07:43→20:56)
[2017-12-13] MEDS: diatr meglu/diatrizoate 30ml oral sol.-(3 dose) bottle PO SCH ×2 (07:51→12:28)
[2017-12-13] MEDS: K and/or MAG REPLACEMENT MC SCH (07:52)
[2017-12-13] MEDS: pantoprazole 40mg Tablet.DR PO SCH (07:58)
[2017-12-13] MEDS: ciprofloxacin 250mg tablet PO SCH ×2 (10:06→23:13)
[2017-12-13] MEDS: Potassium Cl inj 10 MEQ in normal saline 1000ml 1,000 ML IV SCH (11:48)
[2017-12-13] MEDS ORDERED: iohexol 300mg/ml 100ml inj. ONE (12:24)
[2017-12-13] MEDS ORDERED: diphenhydrAMINE 25mg capsule PO ONE (14:10)
[2017-12-13] MEDS ORDERED: acetaminophen 325mg tablet PO ONE (14:10)
[2017-12-13] MEDS ORDERED: furosemide 40mg/4ml inj IV ONE (16:10)
[2017-12-14 00:25] VITALS: BP 125/87
[2017-12-14 00:45] VITALS: BP 150/85
[2017-12-14] MEDS: HYDROmorphone inj. 0.5 MG/0.5 ML DISP.SYRIN IV PRN ×5 (03:20→22:59)
[2017-12-14 05:07] LABS: BASOPHILS # (AUTO) 0.1 X10'3 (0-0.2); BASOPHILS % (AUTO) 0.6 % (0-1); EOSINOPHILS # (AUTO) 0.6 X10'3 (0-0.9); EOSINOPHILS % (AUTO) 4.4 % (0-6); HEMATOCRIT 28.6 % (42.0-52.0); HEMOGLOBIN 9.4 g/dl (14.0-17.9); LYMPHOCYTES % (AUTO) 14.1 % (21-51); MEAN CORPUSCULAR HEMOGLOBIN 26.3 PG (27.0-31.0); MEAN CORPUSCULAR HGB CONC 32.8 % (33.0-36.5); MEAN CORPUSCULAR VOLUME 80.2 FL (78-98); MEAN PLATELET VOLUME 6.3 FL (7.4-10.4); MONOCYTES # (AUTO) 1.2 X10'3 (0-0.9); MONOCYTES % (AUTO) 8.3 % (2-12); NEUTROPHILS # (AUTO) 10.1 X10'3 (1.8-7.7); NEUTROPHILS % (AUTO) 72.6 % (42-75); PLATELET COUNT 651 X10'3 (140-440); RED BLOOD COUNT 3.57 X10'6 (4.70-6.10); RED CELL DISTRIBUTION WIDTH 17.3 % (11.5-14.5); WHITE BLOOD COUNT 13.9 X10'3 (4.5-11.0)
[2017-12-14 05:14] LABS: ALANINE AMINOTRANSFERASE 18 U/L (12-78); ALBUMIN 2.1 G/DL (3.4-5.0); ALBUMIN/GLOBULIN RATIO 0.3 (1.1-1.5); ALKALINE PHOSPHATASE 262 IU/L (46-116); ANION GAP 5 (8-16); ASPARTATE AMINO TRANSFERASE 33 U/L (10-37); BILIRUBIN,TOTAL 0.8 MG/DL (0.1-1.0); BLOOD UREA NITROGEN 11 MG/DL (7-18); BUN/CREATININE RATIO 9.2 (5.4-32.0); CALCIUM 8.5 MG/DL (8.5-10.1); CHLORIDE 98 MMOL/L (99-107); POTASSIUM 3.8 MMOL/L (3.5-5.1); SODIUM 132 MMOL/L (135-145); TOTAL CARBON DIOXIDE 28.6 MMOL/L (24-32); TOTAL PROTEIN 8.3 G/DL (6.4-8.2); eGFR 65 ML/MIN
[2017-12-14 05:37] LABS: GLUCOSE 95 MG/DL (70-104)
[2017-12-14] MEDS: Potassium Cl inj 10 MEQ in normal saline 1000ml 1,000 ML IV SCH ×2 (05:56→13:38)
[2017-12-14 07:39] VITALS: BP 156/92
[2017-12-14] MEDS: methadone 10mg tablet PO SCH ×2 (07:41→21:07)
[2017-12-14] MEDS: pantoprazole 40mg Tablet.DR PO SCH (07:41)
[2017-12-14] MEDS: LORazepam 0.5 MG tablet PO SCH ×3 (07:41→21:08)
[2017-12-14] MEDS: lisinopril 20mg tablet PO SCH (07:41)
[2017-12-14] MEDS: metroNIDAZOLE 500mg tablet PO SCH ×2 (07:41→21:07)
[2017-12-14] MEDS: K and/or MAG REPLACEMENT MC SCH (07:44)
[2017-12-14] MEDS: LACTOBACILLUS RHAMNOSUS GG 15 billion unit sprinkle caps PO SCH (07:46)
[2017-12-14] MEDS: ciprofloxacin 250mg tablet PO SCH ×2 (09:36→21:08)
[2017-12-14 11:30] VITALS: BP 133/90
[2017-12-14 20:00] VITALS: BP 150/94
[2017-12-14 23:00] VITALS: BP 128/82
[2017-12-15] MEDS: HYDROmorphone inj. 0.5 MG/0.5 ML DISP.SYRIN IV PRN ×3 (03:15→12:24)
[2017-12-15] MEDS: Potassium Cl inj 10 MEQ in normal saline 1000ml 1,000 ML IV SCH (03:22)
[2017-12-15 06:06] LABS: BASOPHILS # (AUTO) 0.1 X10'3 (0-0.2); BASOPHILS % (AUTO) 0.6 % (0-1); EOSINOPHILS # (AUTO) 0.6 X10'3 (0-0.9); HEMATOCRIT 26.5 % (42.0-52.0); HEMOGLOBIN 8.9 g/dl (14.0-17.9); LYMPHOCYTES # (AUTO) 2.3 X10'3 (1.1-4.8); LYMPHOCYTES % (AUTO) 15.6 % (21-51); MEAN CORPUSCULAR HEMOGLOBIN 26.6 PG (27.0-31.0); MEAN CORPUSCULAR HGB CONC 33.7 % (33.0-36.5); MEAN CORPUSCULAR VOLUME 79.1 FL (78-98); MEAN PLATELET VOLUME 6.2 FL (7.4-10.4); MONOCYTES # (AUTO) 1.1 X10'3 (0-0.9); MONOCYTES % (AUTO) 7.2 % (2-12); NEUTROPHILS # (AUTO) 10.8 X10'3 (1.8-7.7); NEUTROPHILS % (AUTO) 72.6 % (42-75); PLATELET COUNT 621 X10'3 (140-440); RED BLOOD COUNT 3.35 X10'6 (4.70-6.10); RED CELL DISTRIBUTION WIDTH 17.4 % (11.5-14.5); WHITE BLOOD COUNT 14.9 X10'3 (4.5-11.0)
[2017-12-15 06:25] LABS: ALANINE AMINOTRANSFERASE 18 U/L (12-78); ALBUMIN 2.1 G/DL (3.4-5.0); ALBUMIN/GLOBULIN RATIO 0.4 (1.1-1.5); ALKALINE PHOSPHATASE 252 IU/L (46-116); ANION GAP 8 (8-16); ASPARTATE AMINO TRANSFERASE 34 U/L (10-37); BILIRUBIN,TOTAL 0.5 MG/DL (0.1-1.0); BLOOD UREA NITROGEN 7 MG/DL (7-18); CALCIUM 8.4 MG/DL (8.5-10.1); CHLORIDE 98 MMOL/L (99-107); GLUCOSE 102 MG/DL (70-104); POTASSIUM 3.8 MMOL/L (3.5-5.1); SODIUM 133 MMOL/L (135-145); eGFR 80 ML/MIN
[2017-12-15 07:00] VITALS: BP 132/88
[2017-12-15] MEDS: K and/or MAG REPLACEMENT MC SCH (07:18)
[2017-12-15] MEDS: pantoprazole 40mg Tablet.DR PO SCH (07:22)
[2017-12-15] MEDS: methadone 10mg tablet PO SCH ×2 (07:22→20:44)
[2017-12-15] MEDS: metroNIDAZOLE 500mg tablet PO SCH ×2 (07:22→20:44)
[2017-12-15] MEDS: LACTOBACILLUS RHAMNOSUS GG 15 billion unit sprinkle caps PO SCH (07:23)
[2017-12-15] MEDS: lisinopril 20mg tablet PO SCH (07:23)
[2017-12-15] MEDS: LORazepam 0.5 MG tablet PO SCH ×3 (07:23→20:44)
[2017-12-15 11:30] VITALS: BP 136/91
[2017-12-15] MEDS ORDERED: CIPR250T4 PO (12:17)
[2017-12-15] MEDS ORDERED: METR500T4 PO (12:17)
[2017-12-15] MEDS: ciprofloxacin 250mg tablet PO SCH ×2 (12:24→23:47)
[2017-12-15] MEDS ORDERED: ciprofloxacin PO (12:45)
[2017-12-15] MEDS ORDERED: DOL10T PO (13:05)
[2017-12-15] MEDS ORDERED: HYDR2TAB28 PO (13:05)
[2017-12-15] MEDS ORDERED: HYDROmorphone 1 mg/ml syringe ONE (16:28)
[2017-12-15 20:00] VITALS: BP 146/92
[2017-12-15] MEDS: HYDROmorphone 2mg tablet PO PRN (20:44)
[2017-12-15 23:00] VITALS: BP 143/90
[2017-12-16] MEDS: HYDROmorphone 2mg tablet PO PRN ×3 (00:50→10:08)
[2017-12-16] MEDS: Potassium Cl inj 10 MEQ in normal saline 1000ml 1,000 ML IV SCH ×2 (01:02→08:08)
[2017-12-16 06:15] LABS: BASOPHILS # (AUTO) 0.1 X10'3 (0-0.2); BASOPHILS % (AUTO) 0.5 % (0-1); EOSINOPHILS # (AUTO) 0.6 X10'3 (0-0.9); EOSINOPHILS % (AUTO) 4.3 % (0-6); HEMATOCRIT 26.7 % (42.0-52.0); LYMPHOCYTES # (AUTO) 2.3 X10'3 (1.1-4.8); LYMPHOCYTES % (AUTO) 16.8 % (21-51); MEAN CORPUSCULAR HEMOGLOBIN 27.2 PG (27.0-31.0); MEAN CORPUSCULAR HGB CONC 33.9 % (33.0-36.5); MEAN CORPUSCULAR VOLUME 80.2 FL (78-98); MEAN PLATELET VOLUME 6.4 FL (7.4-10.4); MONOCYTES # (AUTO) 1.1 X10'3 (0-0.9); NEUTROPHILS # (AUTO) 9.7 X10'3 (1.8-7.7); NEUTROPHILS % (AUTO) 70.4 % (42-75); PLATELET COUNT 617 X10'3 (140-440); RED BLOOD COUNT 3.33 X10'6 (4.70-6.10); RED CELL DISTRIBUTION WIDTH 17.7 % (11.5-14.5); WHITE BLOOD COUNT 13.7 X10'3 (4.5-11.0)
[2017-12-16 06:50] LABS: ALANINE AMINOTRANSFERASE 18 U/L (12-78); ALBUMIN 2.1 G/DL (3.4-5.0); ALBUMIN/GLOBULIN RATIO 0.4 (1.1-1.5); ALKALINE PHOSPHATASE 258 IU/L (46-116); ANION GAP 9 (8-16); ASPARTATE AMINO TRANSFERASE 34 U/L (10-37); BILIRUBIN,TOTAL 0.4 MG/DL (0.1-1.0); BLOOD UREA NITROGEN 9 MG/DL (7-18); CALCIUM 8.5 MG/DL (8.5-10.1); CHLORIDE 99 MMOL/L (99-107); SODIUM 134 MMOL/L (135-145); TOTAL CARBON DIOXIDE 26.4 MMOL/L (24-32); TOTAL PROTEIN 7.9 G/DL (6.4-8.2); eGFR 90 ML/MIN
[2017-12-16 06:58] LABS: GLUCOSE 85 MG/DL (70-104)
[2017-12-16 07:23] VITALS: BP 124/99
[2017-12-16] MEDS: LORazepam 0.5 MG tablet PO SCH ×2 (07:44→13:00)
[2017-12-16] MEDS: LACTOBACILLUS RHAMNOSUS GG 15 billion unit sprinkle caps PO SCH (07:44)
[2017-12-16] MEDS: pantoprazole 40mg Tablet.DR PO SCH (07:44)
[2017-12-16] MEDS: methadone 10mg tablet PO SCH (07:45)
[2017-12-16] MEDS: metroNIDAZOLE 500mg tablet PO SCH (07:45)
[2017-12-16] MEDS: K and/or MAG REPLACEMENT MC SCH (07:54)
[2017-12-16] MEDS ORDERED: lisinopril 10 MG tablet PO SCH (08:00)
[2017-12-16] MEDS ORDERED: fluconazole 150mg tablet PO SCH (08:00)
[2017-12-16] MEDS ORDERED: LORazepam 2 mg/ml vial IV ONE (09:50)
[2017-12-16] MEDS ORDERED: nystatin 500,000 unit/5ML UD oral suspension PO ONE (09:50)
[2017-12-16] MEDS ORDERED: NYST1000 PO (09:54)
[2017-12-16] MEDS: ciprofloxacin 250mg tablet PO SCH (10:05)
[2017-12-16 11:00] VITALS: BP 139/86
[2017-12-16] MEDS ORDERED: heparin sodium, porcine/PF 100unit/ml 5ML syringe IV ONE (11:35)
[2017-12-16] MEDS ORDERED: nystatin 500,000 unit/5ML UD oral suspension PO SCH (13:00)
== END 2017-12-16 13:17 | disposition home health service (06) | DRG 720 ==
LOC: ER 17:40 → ED HOLD 12-02 01:12 → EDBEDREQ 12-02 11:14 → SUR 3N 12-02 11:47 → ED HOLD 12-02 12:51 → PCU 3S 12-02 13:10 → SUR 3N 12-09 12:58
PROVIDERS: ADMIT Internal Medicine; ATTEND Internal Medicine
PROC: BW211ZZ Computerized Tomography (CT Scan) of Abdomen and Pelvis using Low Osmolar Contrast (ICD-10-PCS; 2017-12-02)
PROC: 0H97X0Z Drainage of Abdomen Skin with Drainage Device, External Approach (ICD-10-PCS; 2017-12-02)
PROC: 30233N1 Transfusion of Nonautologous Red Blood Cells into Peripheral Vein, Percutaneous Approach (ICD-10-PCS; principal; 2017-12-13)
PROC: BW211ZZ Computerized Tomography (CT Scan) of Abdomen and Pelvis using Low Osmolar Contrast (ICD-10-PCS; 2017-12-13)
DX: A41.51 Sepsis due to Escherichia coli [E. coli] (principal); K65.1 Peritoneal abscess; N17.9 Acute kidney failure, unspecified; C77.9 Secondary and unspecified malignant neoplasm of lymph node, unspecified; C78.7 Secondary malignant neoplasm of liver and intrahepatic bile duct; E86.0 Dehydration; C18.9 Malignant neoplasm of colon, unspecified; I10 Essential (primary) hypertension; E11.9 Type 2 diabetes mellitus without complications; D64.9 Anemia, unspecified; Z51.5 Encounter for palliative care; F12.90 Cannabis use, unspecified, uncomplicated; F32.9 Major depressive disorder, single episode, unspecified; G89.29 Other chronic pain; M10.9 Gout, unspecified; M54.9 Dorsalgia, unspecified; R45.4 Irritability and anger; Z79.899 Other long term (current) drug therapy; Z80.0 Family history of malignant neoplasm of digestive organs; Z80.43 Family history of malignant neoplasm of testis; Z83.3 Family history of diabetes mellitus; Z79.01 Long term (current) use of anticoagulants; Z79.82 Long term (current) use of aspirin; Z90.49 Acquired absence of other specified parts of digestive tract; Z93.3 Colostomy status; Z76.5 Malingerer [conscious simulation]; Z79.4 Long term (current) use of insulin
CPT/HCPCS: 36415; 49406; 71045; 74176; 74177; 80048; 80053; 80202; 81001; 83605; 83735; 84100; 85025; 85610; 85730; 86885; 86900; 86901; 86920; 87040; 87070; 87077; 87186; 93005; 96365; 96375; 96376; 99285; A6209; A6212; A6213; A6257; A6449; C1729; J0690; J0696; J1170; J1642; J1940; J2060; J2250; J2405; J2543; J2765; J3010; J3370; J3480; J3490; J7030; P9016; Q0163; Q9963; Q9967